=== PATIENT | male | born 1985 | race Caucasian/White ===

== ENCOUNTER 2017-07-14 16:37 | Emergency (ER) | payer OTHER | END 2017-07-14 19:13 | disposition home or self-care (01) | LOC: D.ER 16:37 | DX: S61.301A Unspecified open wound of left index finger with damage to nail, initial encounter (principal); X58.XXXA Exposure to other specified factors, initial encounter; Y93.89 Activity, other specified; Y92.029 Unspecified place in mobile home as the place of occurrence of the external cause; F43.10 Post-traumatic stress disorder, unspecified; Z87.820 Personal history of traumatic brain injury ==